=== PATIENT | male | born 1970 | race Caucasian/White ===

== ENCOUNTER 2021-01-24 19:49 | Emergency (ER) | payer BC ==
--- NOTE | 2021-01-24 22:49 | EDM.PDOC ---
ED HPI GENERAL MEDICAL PROBLEM - General Chief Complaint: Cardiovascular Problem Stated Complaint: LEG SWELLING Time Seen by Provider: 01/24/21 21:21 Source of Information: Reports: Patient History Limitations: Reports: No Limitations - History of Present Illness INITIAL COMMENTS - FREE TEXT/NARRATIVE: Mr. Menendez is a very pleasant 50-year-old gentleman who now presents the ED stating that he developed left leg swelling and erythema 2 days ago, 01/22/2021. The leg has progressively gotten more more painful, particularly with ambulation. He did not know he had a fever, but is found to have a temperature of 101.5 degrees here in the ED. He has not taken any ogbn-ace-[id number] or applied any remedies to his leg since the onset of his symptoms. The patient states that he had similar symptoms following a work-related injury in 2018. At that time, he developed cellulitis and a DVT. 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 Here in the ED, the patient's initial BP is found to be mildly elevated at 141/87, otherwise, he is hemodynamically stable, with a fever of 101.5 degrees and an oxygen saturation of 98% on room air. He appears to be relatively comfortable, in no acute distress. Prior to Monday, the patient denies having a recent fever, chills, sore throat, ear pain, nasal or sinus congestion, cough, dyspnea, chest pain, palpitations, nausea, vomiting, constipation, diarrhea, abdominal pain, urinary symptoms, recent weight gain or weight loss, recent bloody bowel movements or black bowel movements, recent joint aches, headaches, or rashes. The patient lives in [place], but works in this area. He has not received a COVID vaccination. Left Leg Pain Score (Numeric/FACES): 7 - Related Data Allergies Allergy/AdvReac Type Severity Reaction Status Date / Time No Known Allergies Allergy Verified 01/24/21 20:16 Home Meds: Home Meds Omeprazole 20 mg PO DAILY 01/24/21 [History] tadalafiL [Cialis] 0 mg PO ASDIRECTED 01/24/21 [History] Past Medical History Cardiovascular History: Reports: Blood Clots/VTE/DVT (LLE DVT 2018) Gastrointestinal History: Reports: Cirrhosis (Due to alpha-1 antitrypsin deciciency, with resultant esophageal varices, thrombocytopenia.), GERD (with Booker esophagus) Musculoskeletal History: Reports: Osteoarthritis Endocrine/Metabolic History: Reports: Obesity/BMI 30+, Other (See Below) (Prediabetes) - Infectious Disease History Infectious Disease History: Reports: Chicken Pox, Mumps - Past Surgical History HEENT Surgical History: Reports: Oral Surgery (dental extractions) GI Surgical History: Reports: Appendectomy, EGD (x 6 or 7, with esophageal banding x 3 or 4) Male Surgical History: Reports: Vasectomy Social & Family History - Tobacco Use Tobacco Use Status *Q: Former Tobacco User Years of Tobacco use: 12 Packs/Tins Daily: 1 Month/Year Tobacco Last Used: Quit 04/29/2003 Tobacco Use Comment: Started smoking 1990 - Caffeine Use Caffeine Use: Reports: Coffee, Energy Drinks, Tea - Alcohol Use Alcohol Use History: No - Recreational Drug Use Recreational Drug Use: No - Living Situation & Occupation Living situation: Reports: , with Spouse, with Family (2 stepsons) 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 ED EXAM, GENERAL - Physical Exam Exam: See Below Exam Limited By: No Limitations General Appearance: Alert, WD/WN, No Apparent Distress Eye Exam: Bilateral Eye: EOMI, Normal Inspection Ears: Normal External Exam, Hearing Grossly Normal Nose: Normal Inspection Throat/Mouth: Normal Inspection, Normal Lips, Normal Voice, No Airway Compromise Head: Atraumatic, Normocephalic Neck: Normal Inspection, Full Range of Motion Respiratory/Chest: No Respiratory Distress, Lungs Clear, Normal Breath Sounds, No Accessory Muscle Use Cardiovascular: Normal Peripheral Pulses, Regular Rate, Rhythm, No Gallop, No JVD, No Murmur, No Rub Peripheral Pulses: 3+: Radial (L), Radial (R) GI/Abdominal: Normal Bowel Sounds, Soft, Non-Tender, No Organomegaly, No Distention, No Abnormal Bruit, No Mass Back Exam: Normal Inspection, Full Range of Motion, NT Extremities: Normal Range of Motion, Normal Capillary Refill, Other (There are hyperpigmentation changes to both legs, but the left leg has circumferential e rythema with calor, edema, and tenderness. Neurovascular status of the left lower extremity is intact.) Neurological: Alert, Oriented, Normal Cognition, No Motor/Sensory Deficits Psychiatric: Normal Affect Skin Exam: Warm, Dry, Intact, Normal Color, No Rash Course - Vital Signs Last Recorded V/S: Last Vital Signs Temp 38.6 C H 01/24/21 20:24 Pulse 81 01/24/21 20:24 Resp 20 01/24/21 20:24 BP 141/87 H 01/24/21 20:24 Pulse Ox 98 01/24/21 20:24 - Orders/Labs/Meds Orders: Active Orders 24 hr Category Date Time Status VL Duplex Lwr Ext Veins Ltd Lt [US] Stat Exams 01/24/21 22:44 Taken Labs: Laboratory Tests 01/24/21 01/24/21 01/24/21 Range/Units 22:55 22:55 22:55 WBC 3.57 L (4.23-9.07) K/mm3 RBC 4.64 (4.63-6.08) M/mm3 Hgb 14.6 (13.7-17.5) gm/dl Hct 41.0 (40.1-51.0) % MCV 88.4 (79.0-92.2) fl MCH 31.5 (25.7-32.2) pg MCHC 35.6 H (32.2-35.5) g/dl RDW Std Deviation 47.4 H (35.1-43.9) fL Plt Count 60 L (163-337) K/mm3 MPV 9.5 (9.4-12.3) fl Neutrophils % (Manual) 53 (40-60) % Band Neutrophils % 0 (0-10) % Lymphocytes % (Manual) 26 (20-40) % Atypical Lymphs % 0 % Monocytes % (Manual) 20 H (2-10) % Eosinophils % (Manual) 0 L (0.8-7.0) % Basophils % (Manual) 1 (0.2-1.2) Platelet Estimate Decreased RBC Morph Comment Normal PT 13.2 H (9.7-12.0) SECONDS INR 1.24 APTT 32.0 H (21.7-31.4) SECONDS Sodium 140 (136-145) mEq/L Potassium 3.2 L (3.5-5.1) mEq/L Chloride 105 (98-107) mEq/L Carbon Dioxide 27 (21-32) mEq/L Anion Gap 11.2 (5-15) BUN 13 (7-18) mg/dL Creatinine 1.0 (0.7-1.3) mg/dL Est Cr Clr Drug Dosing 98.08 mL/min Estimated GFR (MDRD) > 60 (>60) mL/min BUN/Creatinine Ratio 13.0 L (14-18) Glucose 106 H (70-99) mg/dL Calcium 7.7 L (8.5-10.1) mg/dL Total Bilirubin 1.7 H (0.2-1.0) mg/dL AST 57 H (15-37) U/L ALT 55 (16-63) U/L Alkaline Phosphatase 70 (46-116) U/L Total Protein 6.9 (6.4-8.2) g/dl Albumin 3.0 L (3.4-5.0) g/dl Globulin 3.9 gm/dL Albumin/Globulin Ratio 0.8 L (1-2) MRSA (PCR) 01/24/21 Range/Units 23:00 WBC (4.23-9.07) K/mm3 RBC (4.63-6.08) M/mm3 Hgb (13.7-17.5) gm/dl Hct (40.1-51.0) % MCV (79.0-92.2) fl MCH (25.7-32.2) pg MCHC (32.2-35.5) g/dl RDW Std Deviation (35.1-43.9) fL Plt Count (163-337) K/mm3 MPV (9.4-12.3) fl Neutrophils % (Manual) (40-60) % Band Neutrophils % (0-10) % Lymphocytes % (Manual) (20-40) % Atypical Lymphs % % Monocytes % (Manual) (2-10) % Eosinophils % (Manual) (0.8-7.0) % Basophils % (Manual) (0.2-1.2) Platelet Estimate RBC Morph Comment PT (9.7-12.0) SECONDS INR APTT (21.7-31.4) SECONDS Sodium (136-145) mEq/L Potassium (3.5-5.1) mEq/L Chloride (98-107) mEq/L Carbon Dioxide (21-32) mEq/L Anion Gap (5-15) BUN (7-18) mg/dL Creatinine (0.7-1.3) mg/dL Est Cr Clr Drug Dosing mL/min Estimated GFR (MDRD) (>60) mL/min BUN/Creatinine Ratio (14-18) Glucose (70-99) mg/dL Calcium (8.5-10.1) mg/dL Total Bilirubin (0.2-1.0) mg/dL AST (15-37) U/L ALT (16-63) U/L Alkaline Phosphatase (46-116) U/L Total Protein (6.4-8.2) g/dl Albumin (3.4-5.0) g/dl Globulin gm/dL Albumin/Globulin Ratio (1-2) MRSA (PCR) Negative Meds: Medications Discontinued Medications Generic Name Dose Route Start Last Admin Trade Name Freq PRN Reason Stop Dose Admin Cephalexin 500 mg 01/25/21 00:42 01/25/21 01:14 Cephalexin 500 Mg Cap PO 01/25/21 00:43 500 mg ONETIME STA Administration - Re-Assessments/Exams Free Text/Narrative Re-Assessment/Exam: 01/24/21 22:45 The patient definitely has cellulitis to his left leg, but could also have a DVT. I have therefore ordered a Doppler ultrasound of the left lower extremity, along with some blood work, in the event that the Doppler is positive. I have also ordered an MRSA screen by PCR, in order to be able to correctly pick an antibiotic. 01/24/21 23:54 Doppler ultrasound of the left lower extremity is read by [facility] as "Unremarkable examination." The patient CBC is remarkable for leukopenia of 3.57, and thrombocytopenia of 60,000, with remainder of his CBC being unremarkable. His CMP is remarkable for mild hypokalemia of 3.2 and slight hyperglycemia of 106. His TBil is elevated at 1.7, and his AST is slightly elevated at 57, with an ALT normal at 55, and the remainder of his CMP being unremarkable. His PT is elevated at 13.2, with an INR elevated at 1.24, and a PTT elevated at 32.0. 01/25/21 00:42 The patient's MRSA screen by PCR is negative. Based on the above, I will start the patient on cephalexin. 01/25/21 00:47 Test results discussed with the patient. As above, it appears the patient has cellulitis of his left leg. He will be started on cephalexin, and I will submit an [facility] prescription for the patient to complete a 10-day course. The patient would like a note to be able to return to work tonight. Departure - Departure Time of Disposition: 00:47 Disposition: Home, Self-Care 01 Condition: Good Clinical Impression: Cellulitis of left leg - Discharge Information *PRESCRIPTION DRUG MONITORING PROGRAM REVIEWED*: Not Applicable *COPY OF PRESCRIPTION DRUG MONITORING REPORT IN PATIENT JER: Not Applicable Instructions: Cellulitis, Adult, [id number] Referrals: PCP,Not In Area [Primary Care Provider] - Forms: ED Department Discharge, ED Return to Work/School Form Additional Instructions: You were seen in the emergency room after developing painful swelling and redness to your left leg on Monday. Work-up in the ER included several blood tests, a swab to check for MRSA colonization, and a Doppler ultrasound of your left lower extremity. The Doppler ultrasound was negative. You do not have a DVT. Your MRSA swab returned negative. You are not colonized with MRSA. Based on your history, physical exam, and ER tests, you are most likely suffering from cellulitis of your left leg. You have been started on the antibiotic cephalexin (Keflex), and a prescription for cephalexin has been provided to you via [facility]. Take 1 capsule of cephalexin every 6 hours, as prescribed. Finish the entire 10-day prescription unless told otherwise by a doctor. You may take [id number] Tylenol or ibuprofen as needed for discomfort. A note to return to work tonight has been provided to you. If any other problems, please do not hesitate to return to the ER. Sepsis Event Note (ED) - Focused Exam Vital Signs: Vital Signs Temp Pulse Resp BP Pulse Ox 01/24/21 20:24 38.6 C H 81 20 141/87 H 98 - My Orders Last 24 Hours: My Active Orders 01/24/21 22:44 VL Duplex Lwr Ext Veins Ltd Lt [US] Stat - Assessment/Plan Last 24 Hours: My Active Orders 01/24/21 22:44 VL Duplex Lwr Ext Veins Ltd Lt [US] Stat
[2021-01-25] MEDS: Cephalexin 500 MG Cap PO STA (01:14)
--- NOTE | 2021-01-25 16:17 | US ---
Left lower extremity deep venous ultrasound: Duplex and color Doppler evaluation was obtained of the left common femoral, proximal greater saphenous, superficial femoral, popliteal, posterior tibial and peroneal veins. Right common femoral vein was also evaluated. Comparison: No prior venous imaging is available. Findings: Lymph node is noted within the left groin which is believed to be incidental. Normal phasic flow, augmentation and compression are seen. Impression: 1. No evidence of deep venous thrombosis within the left lower extremity or within the right common femoral vein. Diagnostic code #1 I agree with preliminary report from [facility], finalized on 01/25/21, 12:48 AM CDT
== END 2021-01-25 01:20 | disposition home or self-care (01) ==
LOC: JD.ED 19:49
DX: L03.116 Cellulitis of left lower limb (principal); K21.9 Gastro-esophageal reflux disease without esophagitis; E66.9 Obesity, unspecified; Z68.35 Body mass index [BMI] 35.0-35.9, adult; Z87.891 Personal history of nicotine dependence; Z79.899 Other long term (current) drug therapy
CPT/HCPCS: 36415; 80053; 85007; 85027; 85610; 85730; 87641; 93971; 99284; A9270; 99283